=== PATIENT | female | born 1965 | race Caucasian/White ===

== ENCOUNTER 2020-09-09 13:21 | Emergency (ER) | payer BC, SELFPAY ==
[2020-09-09 13:40] VITALS: BP 143/76; PULSE 93; RESP 12; TEMP 36.8; O2SAT 100
--- NOTE | 2020-09-09 14:26 | ED.GENADULT ---
HPI - General Adult General Chief complaint: Wound/Laceration Stated complaint: spider bite Time Seen by Provider: 09/09/20 14:20 Source: patient and RN notes reviewed Mode of arrival: ambulatory Limitations: no limitations History of Present Illness HPI narrative: 55-year-old female presents with complaints of redness, warmth, tenderness, and swelling to the left lower leg for the past 4 days. Milka reports possible insect bite with increased itching, redness, and warmth. ?No treatment. ?Denies radiation of tenderness, redness, or swelling. ?No exacerbating factors. ?Denies open areas or drainage. ?Denies fever. Denies nausea, vomiting, and abdominal pain. Tolerating po intake well. Remains active. The patient reports she has not been diagnosed with COVID-19. ?Patient reports she received 2 [employer] COVID-19 vaccines. ?The patient reports she is not waiting for the results of a COVID-19 lab test. ?The patient reports she does not have chills, weakness, or fatigue. The patient reports she does not have a new or worsening cough or shortness of breath. Denies chest pain. ?The patient reports she does not have any rhinorrhea, congestion, loss of taste or smell, sore throat, and diarrhea. ?Denies recent traveling. ?Denies concerns for COVID-19 or exposures. ?At this time, the patient is not suspected of having COVID-19. Some parts of this dictation were generated by voice recognition software and may contain typographical and/or grammatical inaccuracies. Related Data Allergies Allergy/AdvReac Type Severity Reaction Status Date / Time Sulfa (Sulfonamide Allergy Rash Verified 09/09/20 13:42 Antibiotics) Review of Systems Review of Systems: Narrative: CONSTITUTIONAL: Denies fever, chills, sweats. EYES: Denies visual changes, redness, discharge. ENT: Denies rhinorrhea, congestion, sore throat, otalgia. CARDIOVASCULAR: Denies chest pain, palpitations, edema. RESPIRATORY: Denies dyspnea, wheezing, cough. GASTROINTESTINAL: Denies abdominal pain, nausea, vomiting, diarrhea. SKIN: Complaints of redness, warmth, tenderness, and swelling to the left lower leg. MUSCULOSKELETAL: Denies acute back pain, joint pain, or myalgia. NEUROLOGIC: Denies numbness or focal weakness. PSYCHIATRIC: Denies anxiety or depression. All systems reviewed & are unremarkable except as noted in HPI and below. [facility] Past Medical History Medical History (Updated 09/10/20 @ 00:53 by LOLI Hay) Cataract Surgical History Surgical History (Updated 09/10/20 @ 00:53 by LOLI Hay) History of eye surgery for cataract History of hysterectomy Family History Family History (Updated 09/10/20 @ 00:56 by LOLI Hay) Father , MVC Unknown family medical history Mother Hypertension Diabetes mellitus Social History Social History (Updated 09/10/20 @ 00:57 by LOLI Hay) Smoking status: Never smoker Tobacco type: cigarettes Second hand tobacco smoke exposure: No Alcohol intake: current Substance use: never Substance use type: does not use Living arrangements: with family Occupation/Education: occupation Gender identity (if verbalized by the patient): Female Sexual Orientation (if Verbalized by the Patient): Straight or Heterosexual Comments At time of signature, agree with the nurse past medical, surgical, social, and family history. There is no relevant family history pertinent to the presenting complaint. Exam Narrative: Exam Narrative: GENERAL: This is a well-nourished, well-developed patient, in no apparent distress. HEAD: Normocephalic, atraumatic. EYES: PERRL. Sclera clear/white. Vision is grossly intact. CARDIOVASCULAR: Regular rate and rhythm without murmurs, gallops, or rubs. RESPIRATORY: Clear to auscultation. Breath sounds equal bilaterally. No wheezes, rales, or rhonchi. GASTROINTESTINAL: Abdomen soft, non-tender, nondistended. Bowel sounds are active
== END 2020-09-09 14:30 | disposition home or self-care (01) ==
PROVIDERS: Emergency Provider Nurse Practitioner Family
DX: L03.116 Cellulitis of left lower limb (principal); H26.9 Unspecified cataract
CPT/HCPCS: 99213; G0463